=== PATIENT | female | born 1960 | race Caucasian/White ===

== ENCOUNTER → 2018-02-17 | Outpatient (CLI) | payer OTHER ==
[~2018-02-17] MED LIST: ALBUTEROL INHAL17 GM IH; ASPIRIN81 M2; AUGMENTIN 875875 M1 PO; CYMBALTA60 MG; CYMBALTA60 MG PO; HYDROCODONE-APA1 TA1 PO; LIPITOR 20 MG T20 M1; LISINOPRIL20 MG; LOPRESSOR; LOPRESSOR25; MOBIC15 MG; NEURONTIN 300300 M1; NEXIUM40 MG; NORCO 5-325 TA1 EACH PO; PROBIOTIC1 EAC1; ZANTAC; ZYRTEC10 M5
--- NOTE | 2018-02-17 16:13 | 2DMMODE ---
[place] [address] 2 D/M-MODE ECHOCARDIOGRAM Name: TIFFANY HARTMANN Room: [facility]#: [id number] Admission: 02/17/18 Attend Phys: RAVEN CHANEY Discharge: Date of : 56 Date of Service: 02/17/18 1613 Report #: [id number] THIS REPORT FOR: //name// APPROVED REPORT Study performed: 02/17/2018 15:08:52 EXAM: Comprehensive 2D, Doppler, and color-flow Echocardiogram Patient Location: Out-Patient Status: routine BSA: 2.08 HR: 84 bpm Other Information Study Quality: Good Indications Abnormal weight gain 2D Dimensions LVEF(%): 74.92 (>50%) IVSd: 9.83 (7-11mm) LVOT Diam: 20.69 (18-24mm) LVDd: 44.36 mm PWd: 9.32 (7-11mm) Ascending Ao: 26.71 (22-36mm) LVDs: 25.05 (25-40mm) Aortic Root: 19.53 mm Jung's LVEF: 74.92 % Volumes Left Atrial Volume (Systole) LA ESV Index: 15.00 mL/m2 Aortic Valve AoV Peak Patrick.: 3.09 m/s AO Peak Gr.: 38.10 mmHg LVOT Max P.16 mmHg AO Mean Gr.: 23.36 mmHg LVOT Mean P.74 mmHg LVOT Max V: 1.51 m/s AO V2 VTI: 64.53 cm LVOT Mean V: 1.01 m/s JOAN (VTI): 1.79 cm2 LVOT V1 VTI: 34.31 cm Mitral Valve E/A Ratio: 0.88 MV Decel. Time: 296.29 [place] [address] 2 D/M-MODE ECHOCARDIOGRAM Name: TIFFANY HARTMANN Room: [facility]#: [id number] Admission: 02/17/18 Attend Phys: RAVEN CHANEY Discharge: Date of : 56 Date of Service: 02/17/18 1613 Report #: [id number] MV E Max Patrick.: 1.10 m/s MV PHT: 85.92 ms MVA (PHT): 2.56 cm2 TDI E/Lateral E': 10.00 E/Medial E': 9.17 Medial E' Patrick.: 0.12 m/s Lateral E' Patrick.: 0.11 m/s Pulmonary Valve PV Peak Patrick.: 1.45 m/s PV Peak Gr.: 8.46 mmHg Tricuspid Valve TR Peak Gr.: 34.90 mmHg RVSP: 39.90 mmHg Left Ventricle The left ventricle is normal size. There is normal LV segmental wall motion. There is normal left ventricular wall thickness. Left ventricular systolic function is normal. The left ventricular ejection fraction is within the normal range. LVEF is 60-65%. Grade I - abnormal relaxation pattern. Right Ventricle The right ventricle is normal size. The right ventricular systolic function is normal. Atria The left atrium size is normal. The right atrium size is normal. Aortic Valve Aortic valve is mildly calcified. No aortic regurgitation is present. There is no aortic valvular stenosis. Mitral Valve Mild mitral annular calcification. Mild mitral regurgitation. No evidence of mitral valve stenosis. Tricuspid Valve The tricuspid valve is normal in structure. Mild to moderate tricuspid regurgitation. The RVSP is __40 mmHg. Pulmonic Valve The pulmonary valve is normal in structure. There is no pulmonic [place] [address] 2 D/M-MODE ECHOCARDIOGRAM Name: UNIQUE HARTMANNUREEN Ben Room: [facility]#: [id number] Admission: 02/17/18 Attend Phys: RAVEN CHANEY Discharge: Date of : 56 Date of Service: 02/17/18 1613 Report #: [id number] Great Vessels The aortic root is normal in size. IVC is normal in size and collapses with >50% inspiration Pericardium There is no pericardial effusion. <Conclusion> The left ventricle is normal size. There is normal left ventricular wall thickness. Left ventricular systolic function is normal. The left ventricular ejection fraction is within the normal range. LVEF is 60-65%. Grade I - abnormal relaxation pattern. The right ventricle is normal size. The left atrium size is normal. Aortic valve is mildly calcified. No aortic regurgitation is present. There is no aortic valvular stenosis. Mild mitral annular calcification. Mild mitral regurgitation. No evidence of mitral valve stenosis. The tricuspid valve is normal in structure. Mild to moderate tricuspid regurgitation. The RVSP is __40 mmHg. IVC is normal in size and collapses with >50% inspiration There is no pericardial effusion. There is normal LV segmental wall motion. <ELECTRONICALLY SIGNED> By: Elvin Pizarro MD, FACC 02/17/18 1613 161 161 Elvin Pizarro MD, FACC /INF
== END ==
LOC: M.CRD 14:52
DX: I08.1 Rheumatic disorders of both mitral and tricuspid valves (principal)

== ENCOUNTER 2018-03-23 21:04 | Emergency (ER) | payer OTHER ==
[~2018-03-23] VITALS: Ht 154.9 cm; Wt 117.9 kg
[~2018-03-23 21:04] MED LIST changes: -NEURONTIN 300300 M1; -NORCO 5-325 TA1 EACH PO; -PROBIOTIC1 EAC1; -ZYRTEC10 M5
[2018-03-23] MEDS ORDERED: ZYRTEC10 M5 (21:16)
[2018-03-23] MEDS ORDERED: NEURONTIN 300300 M1 (21:16)
[2018-03-23] MEDS ORDERED: PROBIOTIC1 EAC1 (21:17)
[2018-03-23] MEDS ORDERED: NORCO 5-325 TA1 EACH PO (22:46)
[2018-03-23 23:20] VITALS: BP 139/70
== END 2018-03-23 23:21 | disposition home or self-care (01) ==
LOC: M.ERS 21:04
DX: S00.31XA Abrasion of nose, initial encounter (principal); M25.561 Pain in right knee; M25.562 Pain in left knee; M25.522 Pain in left elbow; R07.81 Pleurodynia; M25.511 Pain in right shoulder; K21.9 Gastro-esophageal reflux disease without esophagitis; M79.7 Fibromyalgia; F41.0 Panic disorder [episodic paroxysmal anxiety]; F17.210 Nicotine dependence, cigarettes, uncomplicated; Z91.041 Radiographic dye allergy status; Z88.2 Allergy status to sulfonamides; Z88.8 Allergy status to other drugs, medicaments and biological substances; W01.0XXA Fall on same level from slipping, tripping and stumbling without subsequent striking against object, initial encounter; Y93.89 Activity, other specified; Y92.89 Other specified places as the place of occurrence of the external cause; Y99.8 Other external cause status

== ENCOUNTER → 2018-07-22 | Outpatient (CLI) | payer OTHER ==
[~2018-07-22] MED LIST changes: +NEURONTIN 300300 M1; +NORCO 5-325 TA1 EACH PO; +PROBIOTIC1 EAC1; +ZYRTEC10 M5
== END | disposition home or self-care (01) ==
LOC: M.RAD 12:30
DX: M19.011 Primary osteoarthritis, right shoulder (principal); N95.9 Unspecified menopausal and perimenopausal disorder; N91.2 Amenorrhea, unspecified; M81.0 Age-related osteoporosis without current pathological fracture; Z88.2 Allergy status to sulfonamides; Z91.041 Radiographic dye allergy status; Z79.82 Long term (current) use of aspirin; Z79.899 Other long term (current) drug therapy

== ENCOUNTER → 2018-08-05 | Outpatient (CLI) | payer OTHER ==
--- NOTE | 2018-08-05 19:06 | EXE ---
[place] [address] STRESS ECHOCARDIOGRAM Name: TIFFANY HARTMANN Room: [facility]#: [id number] Admission: 08/05/18 Attend Phys: RAVEN CHANEY Discharge: Date of : 56 Date of Service: 08/05/18 1906 Report #: [id number] THIS REPORT FOR: //name// APPROVED REPORT Study performed: 08/05/2018 10:55:10 Exam: Dobutamine Stress Echo Indication: Abnormal EKG Patient Location: Out-Patient Stress Nurse: Mary Rogers RN Supervising Physician: Layo Cotto MD Status: routine Ht: 5 ft 2 in HR: 86 bpm BP: 116/57 mmHg Medical History Cardiac Risk Factors: HTN, Hyperlipidemia, DM, FHX of CAD, , Tobacco History (Current/Recent) Procedure The patient underwent a Pharmacological Stress Test using Dobutamine. Blood pressure, heart rate, and EKG were monitored. An Echocardiogram was performed by ophthalmic medical technician in four stages in quad fashion. At peak stress, four selected images were obtained and placed side by side with resting images for comparison. Stress Test Details Stress Test: Pharmacological Stress Test using Dobutamine. HR Resting HR: 86 bpm Max Heart Rate (APMHR): 160 bpm Max HR Achieved: 140 bpm Target HR (85% APMHR): 136 bpm % of APMHR: 87 Recovery HR: 97 bpm HR response to stress: Normal HR response to stress BP Resting BP: 116/57 mmHg Max BP: 262/43 mmHg Recovery BP: 126/72 mmHg ECG Resting ECG: Sinus Rhythm, [place] [address] STRESS ECHOCARDIOGRAM Name: TIFFANY HARTMANN Room: [facility]#: [id number] Admission: 08/05/18 Attend Phys: RAVEN CHANEY Discharge: Date of : 56 Date of Service: 08/05/18 1906 Report #: [id number] Stress ECG: Sinus Rhythm, nonspecific ST-T abnormalities ST Change: Upsloping ST depression Maximum ST Deviation: 0.5 mm Arrhythmia: None Recovery ECG: Sinus Rhythm, nonspecific ST-T abnormalities Recovery ST Change: Upsloping ST depression Recovery ST Deviation: 0.5 mm Recovery Arrhythmia: None Clinical Stress Symptoms: Dyspnea, Nausea Pre-Stress Echo The resting Echocardiogram showed normal left ventricular contractility with an estimated Ejection Fraction of about 55-60%. Post-Stress Echo The stress Echocardiogram showed normal left ventricular contractility with an estimated Ejection Fraction of about 65-70%. Conclusion Clinical Response: Non-ischemic Exercise Capacity: Superior Stress ECG Response: Non-ischemic Stress Echo Images: Non-ischemic low risk stress echo for future cardiac events Other Information Study Quality: Technically Difficult <Conclusion> low risk stress echo for future cardiac events <ELECTRONICALLY SIGNED> By: Layo Cotto MD, FACC 08/05/181905 05 05 Layo Cotto MD, FACC /INF
== END ==
LOC: M.CRD 10:34
DX: R94.31 Abnormal electrocardiogram [ECG] [EKG] (principal)

== ENCOUNTER 2018-11-30 11:52 | Emergency (ER) | payer OTHER ==
[~2018-11-30] VITALS: Ht 152.4 cm; Wt 111.1 kg
[2018-11-30] MEDS ORDERED: GABAPENTIN800 M1 PO (12:04)
[2018-11-30 12:53] LABS: HEMATOCRIT 44.6 % (37.0-47.0); HEMOGLOBIN 14.6 gm/dL (12.0-15.0); MCH 24.5 pg (26.0-34.0); MCHC 32.6 g/dL (28.0-37.0); MCV 75.1 fL (80.0-100.0); MPV 10.5 fl. (7.2-11.1); PLATELET COUNT* 198 thou/uL (150-400); RBC 5.94 mil/uL (4.20-5.00); RDW-CV 17.5 % (10.5-14.5)
[2018-11-30 12:56] LABS: CALCIUM 9.5 mg/dL (8.5-10.1); CREATININE 0.9 mg/dL (0.6-1.3); POTASSIUM 4.1 mmol/L (3.5-5.1)
[2018-11-30 14:52] LABS: ABSOLUTE BASOPHILS 0.1 thou/uL (0.0-0.2); ABSOLUTE EOSINOPHILS 0.2 thou/uL (0.0-0.7); ABSOLUTE LYMPHOCYTES 2.3 thou/uL (0.8-5.3); ABSOLUTE MONOCYTES 0.5 thou/uL (0.0-1.2); BASOPHILS 0.8 %; EOSINOPHILS 1.9 %; LYMPHOCYTES 28.4 %; MONOCYTES 5.9 %
[2018-11-30 15:04] LABS: ALBUMIN 3.7 g/dL (3.4-5.0); DIRECT BILIRUBIN 0.1 mg/dL (<0.1-0.3); TOTAL BILIRUBIN 0.6 mg/dL (<0.1-1.0); TOTAL PROTEIN 7.8 g/dL (6.4-8.2)
[2018-11-30 15:26] LABS: URINE BILIRUBIN NEGATIVE (Negative); URINE BLOOD TRACE (Negative); URINE CLARITY CLEAR; URINE COLOR YELLOW; URINE GLUCOSE-RANDOM NEGATIVE (Negative); URINE KETONES NEGATIVE (Negative); URINE NITRITE-REFLEX NEGATIVE (Negative); URINE PROTEIN NEGATIVE (Negative); URINE SPECIFIC GRAVITY <= 1.005 (1.005-1.030); URINE UROBILINOGEN 0.2 E.U./dl (0.2-1.0)
[2018-11-30 15:28] LABS: URINE LEUKOCYTES-REFLEX 3+ (Negative)
[2018-11-30 15:32] LABS: MUCUS None Seen strn/LPF (None Seen); SQUAMOUS >10 Many /LPF (0-3)
[2018-11-30 15:33] LABS: BACTERIA-REFLEX >30 Many /HPF (None Seen); CASTS None Seen /LPF (None Seen); CRYSTALS None Seen /LPF (None Seen); URINE WBC-REFLEX >25 Many /HPF (0-5)
[2018-11-30 15:34] LABS: URINE RBC 0-2 Rare /HPF (0-2)
[2018-11-30] MEDS ORDERED: KEFLEX500 M1 PO (16:03)
[2018-11-30] MEDS ORDERED: ZOFRAN ODT4 MG PO (16:03)
[2018-11-30] MEDS ORDERED: ULTRAM 50MG TAB50 MG PO (16:03)
[2018-11-30 16:19] VITALS: BP 127/72
--- NOTE | 2018-11-30 16:33 | EKG ---
[place] [address] ELECTROCARDIOGRAM REPORT Name: TIFFANY HARTMANN Room: [facility]#: [id number] Admission: 11/30/18 Attend Phys: Discharge: Date of : 56 Report #: [id number] THIS REPORT FOR: //name// [facility] ED Test Date: 2018-11-30 Test Time: 12:50:39 Pat Name: TIFFANY HARTMANN Department: Room: Gender: F Community Living Specialist: OSCAR : 1960 Requested By: Lacey Ross Order Number: [id number] MD: Elvin Pizarro Measurements Intervals [place] Rate: 96 P: 52 [place]: 134 QRS: 42 QRSD: 77 T: 50 QT: 337 QTc: 426 Interpretive Statements Sinus rhythm Abnormal R-wave progression, early transition Borderline T wave abnormalities Compared to ECG 11/17/2016 19:45:48 No significant changes Electronically Signed On 11-30-2018 16:33:23 GUEST RELATIONS MANAGER by Elvin Pizarro [email or web address] <ELECTRONICALLY SIGNED> By: Elvin Pizarro MD, [facility] 11/30/18 1633 1250 1250 Elvin Pizarro MD, FACC /EPI
== END 2018-11-30 16:33 | disposition home or self-care (01) ==
LOC: M.ERS 11:52
PROVIDERS: Personal Emergency Response Attendant
DX: N39.0 Urinary tract infection, site not specified (principal); R19.7 Diarrhea, unspecified; R41.0 Disorientation, unspecified; F41.0 Panic disorder [episodic paroxysmal anxiety]; K21.9 Gastro-esophageal reflux disease without esophagitis; M79.7 Fibromyalgia; F17.210 Nicotine dependence, cigarettes, uncomplicated; Z88.2 Allergy status to sulfonamides; Z91.041 Radiographic dye allergy status; Z88.8 Allergy status to other drugs, medicaments and biological substances; Z90.710 Acquired absence of both cervix and uterus

== ENCOUNTER → 2019-03-02 | Outpatient (CLI) | payer OTHER ==
[~2019-03-02] MED LIST changes: +GABAPENTIN800 M1 PO; +KEFLEX500 M1 PO; +ULTRAM 50MG TAB50 MG PO; +ZOFRAN ODT4 MG PO
== END ==
LOC: M.ULTRA 11:00
DX: L98.8 Other specified disorders of the skin and subcutaneous tissue (principal)

== ENCOUNTER 2019-09-11 17:11 | Emergency (ER) | payer OTHER ==
[~2019-09-11] VITALS: Ht 162.6 cm; Wt 113.0 kg
[2019-09-11 18:17] LABS: URINE BILIRUBIN NEGATIVE (Negative); URINE BLOOD NEGATIVE (Negative); URINE CLARITY CLEAR; URINE COLOR YELLOW; URINE GLUCOSE-RANDOM NEGATIVE (Negative); URINE KETONES NEGATIVE (Negative); URINE LEUKOCYTES-REFLEX NEGATIVE (Negative); URINE NITRITE-REFLEX NEGATIVE (Negative); URINE PROTEIN NEGATIVE (Negative); URINE SPECIFIC GRAVITY <= 1.005 (1.005-1.030); URINE UROBILINOGEN 0.2 E.U./dl (0.2-1.0)
[2019-09-11 18:29] LABS: ABSOLUTE BASOPHILS 0.1 thou/uL (0.0-0.2); ABSOLUTE EOSINOPHILS 0.2 thou/uL (0.0-0.7); ABSOLUTE LYMPHOCYTES 2.3 thou/uL (0.8-5.3); ABSOLUTE MONOCYTES 0.5 thou/uL (0.0-1.2); ABSOLUTE NEUTROPHILS 4.4 thou/uL (1.6-8.1); BASOPHILS 1.3 %; HEMATOCRIT 40.5 % (37.0-47.0); HEMOGLOBIN 13.5 gm/dL (12.0-15.0); LYMPHOCYTES 30.7 %; MCH 24.7 pg (26.0-34.0); MCHC 33.2 g/dL (28.0-37.0); MCV 74.2 fL (80.0-100.0); MONOCYTES 6.3 %; MPV 9.9 fl. (7.2-11.1); NUCLEATED RBCS 0 /100WBC; PLATELET COUNT* 195 thou/uL (150-400); POLYS 58.7 %; RBC 5.45 mil/uL (4.20-5.00); RDW-CV 17.4 % (10.5-14.5); WBC 7.6 thou/uL (4.0-11.0)
[2019-09-11 18:43] LABS: CALCIUM 9.4 mg/dL (8.5-10.1); CREATININE 0.8 mg/dL (0.6-1.3); POTASSIUM 4.4 mmol/L (3.5-5.1)
[2019-09-11 18:47] LABS: ALBUMIN 3.6 g/dL (3.4-5.0); TOTAL BILIRUBIN 0.9 mg/dL (<0.1-1.0); TOTAL PROTEIN 7.6 g/dL (6.4-8.2)
[2019-09-11] MEDS ORDERED: NORCO 5-325 TA1 EAC1 PO (19:47)
[2019-09-11] MEDS ORDERED: ONDANSETRON ODT4 MG PO (19:57)
[2019-09-11 20:22] VITALS: BP 126/89
--- NOTE | 2019-09-12 13:21 | EKG ---
[place] [address] ELECTROCARDIOGRAM REPORT Name: TIFFANY HARTMANN Room: [facility]#: [id number] Admission: 09/11/19 Attend Phys: Discharge: 09/11/19 Date of : 56 Report #: [id number] THIS REPORT FOR: //name// [facility] ED Test Date: 2019-09-11 Test Time: 18:12:38 Pat Name: TIFFANY HARTMANN Department: Room: Gender: F Bridge Crew Member: : 1960 Requested By: Sakina Munroe Order Number: [id number] MD: Trevin Kasper Measurements Intervals [place] Rate: 84 P: 70 [place]: 141 QRS: 49 QRSD: 76 T: 77 QT: 353 QTc: 418 Interpretive Statements Sinus rhythm Consider right atrial enlargement Abnormal R-wave progression, early transition Compared to ECG 11/30/2018 12:50:39 T-wave abnormality no longer present Electronically Signed On 09-12-2019 13:21:32 CDT by Trevin Kasper [email or web address] <ELECTRONICALLY SIGNED> By: Trevin Kasper MD, [facility] 09/12/19 1321 11 11 Trevin Kasper MD, FACC /EPI
== END 2019-09-11 20:24 | disposition home or self-care (01) ==
LOC: M.ERS 17:11
PROVIDERS: Physician Assistant
DX: K43.9 Ventral hernia without obstruction or gangrene (principal); R19.7 Diarrhea, unspecified; R60.0 Localized edema; K21.9 Gastro-esophageal reflux disease without esophagitis; F41.0 Panic disorder [episodic paroxysmal anxiety]; M79.7 Fibromyalgia; E66.01 Morbid (severe) obesity due to excess calories; Z91.041 Radiographic dye allergy status; Z88.2 Allergy status to sulfonamides; Z88.8 Allergy status to other drugs, medicaments and biological substances; Z90.710 Acquired absence of both cervix and uterus; Z68.41 Body mass index [BMI] 40.0-44.9, adult

== ENCOUNTER → 2021-02-08 | Outpatient (CLI) | payer OTHER ==
[~2021-02-08] MED LIST changes: +NORCO 5-325 TA1 EAC1 PO; +ONDANSETRON ODT4 MG PO
== END ==
LOC: M.RAD 01-25 10:13
PROVIDERS: ATTEND Nurse Practitioner Family
DX: Z12.31 Encounter for screening mammogram for malignant neoplasm of breast (principal); M81.0 Age-related osteoporosis without current pathological fracture; Z78.0 Asymptomatic menopausal state